=== PATIENT | male | born 1960 | race American Indian/Alaskan Native ===

== ENCOUNTER 2016-09-21 09:01 | Emergency (ER) | payer OTHER ==
[2016-09-21 09:21] VITALS: BP 140/88; PULSE 107; RESP 18; TEMP 99.3; O2SAT 100
[2016-09-21] MEDS ORDERED: Sodium Chloride 0.9% 1,000 ML IV STA (10:42)
--- NOTE | 2016-09-21 11:16 | ED PDOC ---
HPI: Abdomen Time Seen by Provider: 09/21/16 09:41 Chief Complaint (Nursing): Abdominal Pain Chief Complaint (Provider): ABdominal pain History Per: Patient History/Exam Limitations: no limitations Onset/Duration Of Symptoms: Days (x2) Current Symptoms Are (Timing): Still Present Severity: Mild Associated Symptoms: Fever, Chills. denies: Nausea, Vomiting, Diarrhea Additional Complaint(s): Patient is a 56 year old male presenting to the ED complaining of left lower quadrant pain x2 days. Patient reports pain is constant and non-radiating. Pain is associated with constipation, chills and tactile fever. Denies nausea, vomiting, or diarrhea. pMD: none Past Medical History Reviewed: Historical Data, Nursing Documentation, Vital Signs Vital Signs: Last Vital Signs Temp 99.3 F 09/21/16 09:16 Pulse 107 H 09/21/16 09:16 Resp 18 09/21/16 09:16 BP 140/88 09/21/16 09:16 Pulse Ox 100 09/21/16 13:29 - Medical History PMH: HTN, Hyperlipidemia - Surgical History Surgical History: No Surg Hx - Family History Family History: States: No Known Family Hx - Home Medications Home Medications: Ambulatory Orders Medication Instructions Recorded Ciprofloxacin HCl [Cipro] 500 mg PO BID #14 tablet 09/21/16 Metronidazole [Flagyl] 500 mg PO BID #14 tablet 09/21/16 - Allergies Allergies/Adverse Reactions: Allergies Allergy/AdvReac Type Severity Reaction Status Date / Time No Known Allergies Allergy Verified 09/21/16 09:16 Review of Systems ROS Statement: Except As Marked, All Systems Reviewed And Found Negative Constitutional: Positive for: Fever, Chills Gastrointestinal: Positive for: Abdominal Pain, Constipation. Negative for: Nausea, Vomiting, Diarrhea Physical Exam - Reviewed Nursing Documentation Reviewed: Yes Vital Signs Reviewed: Yes - Physical Exam Appears: Positive for: Well, Non-toxic, No Acute Distress Head Exam: Positive for: ATRAUMATIC, NORMAL INSPECTION, NORMOCEPHALIC Skin: Positive for: Normal Color, Warm, DRY Eye Exam: Positive for: Normal appearance, EOMI Neck: Positive for: Normal, Painless ROM Cardiovascular/Chest: Positive for: Regular Rate, Rhythm. Negative for: Gallop , JVD, Murmur Respiratory: Positive for: Normal Breath Sounds. Negative for: Accessory Muscle Use, Rhonchi, Respiratory Distress Gastrointestinal/Abdominal: Positive for: Soft, Tenderness (LLQ). Negative for : Mass, Distended, Guarding, Rebound Extremity: Positive for: Normal ROM Neurologic/Psych: Positive for: Alert, Oriented - Laboratory Results Result Diagrams: 09/21/16 11:30 09/21/16 11:30 - ECG O2 Sat by Pulse Oximetry: 100 (rA) Pulse Ox Interpretation: Normal - Progress Re-evaluation Time: 12:30 Condition: Re-examined, Improved Medical Decision Making Medical Decision Making: Time: 9:45 Impression: Diverticulitis v colitis v other diagnosis considered but not r/o Plan: CT A/P CMP Lipase UDip CBC Morphine 4 mg IV IVF PROCEDURE: CT Abdomen and Pelvis with contrast HISTORY: llq pain COMPARISON: None. TECHNIQUE: Axial and reformatted coronal and sagittal CT images of the abdomen and pelvis were obtained after IV contrast administration. Contrast dose: 95 mL of Omnipaque 3 high Radiation dose: Total exam DLP = 565.4 mGy-cm. This CT exam was performed using one or more of the following dose reduction techniques: Automated exposure control, adjustment of the mA and/or kV according to patient size, and/or use of iterative reconstruction technique. FINDINGS: LOWER THORAX: Small opacities at the lung bases likely atelectasis. LIVER: Mild hepatomegaly is seen without evidence of discrete mass lesion. The portal vein is patent. GALLBLADDER AND BILE DUCTS: Unremarkable. PANCREAS: Unremarkable. No gross lesion or ductal dilatation. SPLEEN: Unremarkable. ADRENALS: Unremarkable. No mass. KIDNEYS AND URETERS: Unremarkable. No hydronephrosis. No solid mass. VASCULATURE: Unremarkable. No aortic aneurysm. BOWEL: There are scattered descending and sigmoid colon diverticulosis. Inflammatory changes and stranding surrounding the proximal sigmoid colon in the left lower abdomen consistent with diverticulitis. No evidence of free air or abscess formation. APPENDIX: No evidence of appendicitis. PERITONEUM: Unremarkable. No free fluid. No free air. LYMPH NODES: Unremarkable. No enlarged lymph nodes. BLADDER: Unremarkable. REPRODUCTIVE: Mildly enlarged prostate demonstrate heterogeneous attenuation and contains foci of calcification. BONES: Moderate degenerative changes at the mid and lower lumbar spine. OTHER FINDINGS: Small fat containing umbilical ventral hernia seen. IMPRESSION: Findings consistent with diverticulitis. No evidence of abscess formation. Otherwise no evidence of acute pathology in the abdomen and pelvis. Mild hepatomegaly. Mildly enlarged heterogeneous prostate. Scribe Attestation: Documented by Tyson Rivera acting as a scribe for Hanny Obrien MD. Scribe Attestation: All medical record entries made by the Scribe were at my direction and personally dictated by me. I have reviewed the chart and agree that the record accurately reflects my personal performance of the history, physical exam, medical decision making, and the department course for this patient. I have also personally directed, reviewed, and agree with the discharge instructions and disposition. Disposition - Clinical Impression Clinical Impression: Acute diverticulitis - Patient ED Disposition Is Patient to be Admitted: No Doctor Will See Patient In The: Office Counseled Patient/Family Regarding: Studies Performed, Diagnosis, Need For Followup - Disposition Referrals: [facility] [Outside] Braxton ALEXANDER,MD Chet [Medical Doctor] - Disposition Time: 13:00 Condition: GOOD Additional Instructions: Return for worsening. Take medications as instructed. Start clear liquid diet. Follow up with your PCP in 2-3 days. Follow up with [facility] in 1 week. Prescriptions: Ciprofloxacin HCl [Cipro] 500 mg PO BID #14 tablet Metronidazole [Flagyl] 500 mg PO BID #14 tablet Instructions: Diverticulitis (DC), Clear Liquid Diet (ED)
[2016-09-21 11:33] LABS: BASO # 0.1 K/uL (0.0-0.2); BASO % 0.5 % (0.0-2.0); EOS # 0.1 K/uL (0.0-0.7); EOS % 0.6 % (0.0-4.0); HEMATOCRIT 45.4 % (35.0-51.0); LYMPH # 1.6 K/uL (1.0-4.3); LYMPH % 14.8 % (20.0-40.0); MEAN CELL VOLUME 91.4 fl (80.0-94.0); MEAN CORPUSCULAR HEMOGLOBIN 30.6 pg (27.0-31.0); MEAN CORPUSCULAR HGB CONC 33.5 g/dL (33.0-37.0); MEAN PLATELET VOLUME 8.6 fl (7.2-11.7); MONO # 0.8 K/uL (0.0-0.8); MONO % 7.2 % (0.0-10.0); NEUT # 8.5 K/uL (1.8-7.0); NEUT % 76.9 % (50.0-75.0); RED CELL DISTRIBUTION WIDTH 14.3 % (11.5-14.5); WHITE BLOOD COUNT 11.1 K/uL (4.8-10.8)
[2016-09-21 11:45] LABS: CHLORIDE 100 mmol/L (98-107); POTASSIUM 4.2 MMOL/L (3.6-5.0); SODIUM 138 mmol/l (132-148)
[2016-09-21 11:47] LABS: ALB/GLOB RATIO 1.2 (1.0-2.1); AST/SGOT 37 U/L (17-59); BILIRUBIN,TOTAL 1.3 mg/dl (0.2-1.3); CARBON DIOXIDE 28 mmol/L (22-30); GFR AFRICAN-AMERICAN > 60; TOTAL PROTEIN 7.4 G/DL (6.3-8.2)
[2016-09-21 11:48] LABS: ALKALINE PHOSPHATASE 72 U/L (38-126); ALT/SGPT 69 U/L (21-72); BLOOD UREA NITROGEN 13 mg/dl (9-20); GLUCOSE,RANDOM 90 mg/dL (75-110); LIPASE 38 U/L (23-300)
[2016-09-21] MEDS ORDERED: Iohexol 300 100 ML IJ ONE (12:05)
[2016-09-21] MEDS ORDERED: Sodium Chloride 0.9% 50 ML IV ONE (12:05)
--- NOTE | 2016-09-21 12:59 | CT ---
PROCEDURE: CT Abdomen and Pelvis with contrast HISTORY: llq pain COMPARISON: None. TECHNIQUE: Axial and reformatted coronal and sagittal CT images of the abdomen and pelvis were obtained after IV contrast administration. Contrast dose: 95 mL of Omnipaque 3 high Radiation dose: Total exam DLP = 565.4 mGy-cm. This CT exam was performed using one or more of the following dose reduction techniques: Automated exposure control, adjustment of the mA and/or kV according to patient size, and/or use of iterative reconstruction technique. FINDINGS: LOWER THORAX: Small opacities at the lung bases likely atelectasis. LIVER: Mild hepatomegaly is seen without evidence of discrete mass lesion. The portal vein is patent. GALLBLADDER AND BILE DUCTS: Unremarkable. PANCREAS: Unremarkable. No gross lesion or ductal dilatation. SPLEEN: Unremarkable. ADRENALS: Unremarkable. No mass. KIDNEYS AND URETERS: Unremarkable. No hydronephrosis. No solid mass. VASCULATURE: Unremarkable. No aortic aneurysm. BOWEL: There are scattered descending and sigmoid colon diverticulosis. Inflammatory changes and stranding surrounding the proximal sigmoid colon in the left lower abdomen consistent with diverticulitis. No evidence of free air or abscess formation. APPENDIX: No evidence of appendicitis. PERITONEUM: Unremarkable. No free fluid. No free air. LYMPH NODES: Unremarkable. No enlarged lymph nodes. BLADDER: Unremarkable. REPRODUCTIVE: Mildly enlarged prostate demonstrate heterogeneous attenuation and contains foci of calcification. BONES: Moderate degenerative changes at the mid and lower lumbar spine. OTHER FINDINGS: Small fat containing umbilical ventral hernia seen. IMPRESSION: Findings consistent with diverticulitis. No evidence of abscess formation. Otherwise no evidence of acute pathology in the abdomen and pelvis. Mild hepatomegaly. Mildly enlarged heterogeneous prostate.
== END 2016-09-21 13:46 | disposition home or self-care (01) ==
LOC: H.ER 09:01
DX: K57.92 Diverticulitis of intestine, part unspecified, without perforation or abscess without bleeding (principal); R10.32 Left lower quadrant pain; E78.5 Hyperlipidemia, unspecified; I10 Essential (primary) hypertension; N40.0 Benign prostatic hyperplasia without lower urinary tract symptoms

== ENCOUNTER 2016-12-07 08:03 | Emergency (ER) | payer OTHER ==
[2016-12-07] MEDS ORDERED: Sodium Chloride 0.9% 1,000 ML IV STA (08:39)
[2016-12-07] MEDS ORDERED: Iohexol 300 100 ML IJ ONE (09:03)
[2016-12-07] MEDS ORDERED: Sodium Chloride 0.9% 50 ML IV ONE (09:03)
[2016-12-07 09:19] LABS: BASO % 0.4 % (0.0-2.0); EOS % 0.2 % (0.0-4.0); LYMPH # 1.3 K/uL (1.0-4.3); MEAN CELL VOLUME 91.6 fl (80.0-94.0); MEAN CORPUSCULAR HEMOGLOBIN 29.8 pg (27.0-31.0); MEAN CORPUSCULAR HGB CONC 32.5 g/dL (33.0-37.0); MEAN PLATELET VOLUME 8.9 fl (7.2-11.7); MONO # 1.2 K/uL (0.0-0.8); MONO % 8.6 % (0.0-10.0); NEUT # 11.4 K/uL (1.8-7.0); NEUT % 81.8 % (50.0-75.0); PLATELET COUNT 222 K/uL (130-400); RBC 5.36 Mil/uL (4.40-5.90); RED CELL DISTRIBUTION WIDTH 15.4 % (11.5-14.5)
--- NOTE | 2016-12-07 09:19 | ED PDOC ---
HPI: Abdomen Time Seen by Provider: 12/07/16 08:27 Chief Complaint (Nursing): Abdominal Pain Chief Complaint (Provider): my diverticulitis is back History Per: Patient History/Exam Limitations: no limitations Onset/Duration Of Symptoms: Days (2), Gradual Current Symptoms Are (Timing): Still Present Location Of Pain/Discomfort: LLQ Quality Of Discomfort: Sharp, Cramping Associated Symptoms: Diarrhea, Loss Of Appetite. denies: Nausea, Vomiting Exacerbating Factors: None Alleviating Factors: None Last Bowel Movement: Today Additional Complaint(s): 56yo male hx diverticulitis several months ago, has been modifying diet, had colonoscopy, now represents c/o lower abdominal pain and loose nonbloody BM for last 2 days. Denies fever, urinary symptoms or vomiting. Past Medical History Reviewed: Historical Data, Nursing Documentation, Vital Signs Vital Signs: Last Vital Signs Temp 99.1 F 12/07/16 08:11 Pulse 96 H 12/07/16 09:22 Resp 18 12/07/16 08:11 BP 138/80 12/07/16 08:11 Pulse Ox 98 12/07/16 11:19 - Medical History PMH: Diverticulitis, HTN, Hyperlipidemia - Surgical History Surgical History: No Surg Hx - Family History Family History: States: Unknown Family Hx - Living Arrangements Living Arrangements: With Family - Social History Current smoker - smoking cessation education provided: No Alcohol: None - Home Medications Home Medications: Ambulatory Orders Medication Instructions Recorded Ciprofloxacin [Cipro] 500 mg PO BID #14 tab 12/07/16 Ezetimibe [Zetia] 1 tab PO DAILY 12/07/16 amLODIPine [Norvasc] 1 tab PO DAILY 12/07/16 metroNIDAZOLE [Flagyl] 500 mg PO TID #21 tab 12/07/16 - Allergies Allergies/Adverse Reactions: Allergies Allergy/AdvReac Type Severity Reaction Status Date / Time No Known Allergies Allergy Verified 12/07/16 09:18 Review of Systems ROS Statement: Except As Marked, All Systems Reviewed And Found Negative Constitutional: Negative for: Fever, Chills Cardiovascular: Negative for: Chest Pain, Palpitations Respiratory: Negative for: Cough, Shortness of Breath Gastrointestinal: Positive for: Abdominal Pain, Diarrhea. Negative for: Nausea , Vomiting, Constipation, Melena, Hematochezia, Hematemesis Genitourinary Male: Negative for: Dysuria Musculoskeletal: Negative for: Neck Pain, Arm Pain, Back Pain, Leg Pain Skin: Negative for: Rash, Lesions, Jaundice Neurological: Negative for: Weakness, Numbness Psych: Negative for: Anxiety Physical Exam - Reviewed Nursing Documentation Reviewed: Yes Vital Signs Reviewed: Yes - Physical Exam Appears: Positive for: Well, Non-toxic, No Acute Distress Head Exam: Positive for: ATRAUMATIC, NORMAL INSPECTION, NORMOCEPHALIC Skin: Positive for: Normal Color, Warm, DRY Eye Exam: Positive for: EOMI, Normal appearance, PERRL ENT: Positive for: Normal ENT Inspection Neck: Positive for: Normal, Painless ROM Cardiovascular/Chest: Positive for: Regular Rate, Rhythm Respiratory: Positive for: CNT, Normal Breath Sounds Gastrointestinal/Abdominal: Positive for: Bowel Sounds, Soft, Tenderness (lower abd b/l). Negative for: Distended, Guarding, Rebound Back: Positive for: Normal Inspection Extremity: Positive for: Normal ROM Neurologic/Psych: Positive for: Alert, Oriented. Negative for: Motor/Sensory Deficits - Laboratory Results Result Diagrams: 12/07/16 09:07 12/07/16 09:34 - ECG O2 Sat by Pulse Oximetry: 98 Medical Decision Making Medical Decision Making: workup initiated for lower abd pain in setting of recent diverticulitis. r/o recurrence/abscess or other acute abdominal pathology. Abd /pelv CT, labwork and pain medicine ordered. labs reviewed, mild elev WBC chem unremarkable CT report: Accession No. : [id number] Patient Name / ID : SKY GRANADO / [id number] Exam Date : 12/07/2016 10:04:38 ( Approved ) Study Comment : Sex / Age : M / 56Y Creator : Dariusz Varela MD Dictator : Dariusz Varela MD Floorperson : Child Custody Evaluator : Dariusz Varela MD Approver2 : Report Date : 12/07/2016 11:08:48 My Comment : PROCEDURE: CT Abdomen and Pelvis with contrast HISTORY: lower abd pain hx diverticulitis COMPARISON: 09/21/2016 TECHNIQUE: Contrast dose: 95 mL Omnipaque 300 Radiation dose: Total exam DLP = 688.86 mGy-cm. This CT exam was performed using one or more of the following dose reduction techniques: Automated exposure control, adjustment of the mA and/or kV according to patient size, and/or use of iterative reconstruction technique. FINDINGS: LOWER THORAX: Unremarkable. LIVER: Normal size and contour. No mass. No biliary dilatation. GALLBLADDER AND BILE DUCTS: Unremarkable. PANCREAS: Unremarkable. No gross lesion or ductal dilatation. SPLEEN: Unremarkable. ADRENALS: Unremarkable. No mass. KIDNEYS AND URETERS: Unremarkable. No hydronephrosis. No solid mass. VASCULATURE: Unremarkable. No aortic aneurysm. BOWEL: Scattered colonic diverticulae. Acute sigmoid diverticulitis with mural thickening and parity sigmoid inflammatory change. No evidence of abscess or free air. Few small reactive perisigmoid lymph nodes identified. The remainder of the bowel is unremarkable. No evidence of bowel obstruction. APPENDIX: Normal appendix. PERITONEUM: Unremarkable. No free fluid. No free air. LYMPH NODES: Unremarkable. No enlarged lymph nodes. BLADDER: Unremarkable. REPRODUCTIVE: Normal prostate BONES: No acute fracture. Extensive multilevel lumbar degenerative disc disease. OTHER FINDINGS: None. IMPRESSION: Acute sigmoid diverticulitis. No evidence of abscess or free air. No other significant abnormality. Will give dose Zosyn in ED and DC with cipro/flagyl for mandatory followup w his GI specialist in [place]. Comfortable, without significant pain, afebrile, stable for outpatient followup and liquid diet x3 days. Disposition - Clinical Impression Clinical Impression: Diverticulitis - Patient ED Disposition Is Patient to be Admitted: No Counseled Patient/Family Regarding: Studies Performed, Diagnosis, Need For Followup - Disposition Referrals: Braxton ALEXANDER,MD Chet [Medical Doctor] - Disposition: Routine/Home Disposition Time: 11:30 Condition: STABLE Additional Instructions: Followup with PMD and GI specialist for further treatment and testing. Return to ER for any worse symptoms, pain, fever, blood in stool or any concern. If symptoms persist or recur, you may need surgery for this condition. Prescriptions: Ciprofloxacin [Cipro] 500 mg PO BID #14 tab metroNIDAZOLE [Flagyl] 500 mg PO TID #21 tab Instructions: Diverticulitis (ED) Forms: [employer] ([place])
[2016-12-07 09:37] LABS: SQUAMOUS EPITHIAL < 1 /hpf (0-5); URINE BILIRUBIN NEGATIVE (NEGATIVE); URINE BLOOD SMALL (NEGATIVE); URINE CLARITY CLEAR (Clear); URINE COLOR YELLOW (YELLOW); URINE GLUCOSE (UA) NEG (Normal); URINE LEUKOCYTE ESTERASE NEG Leu/uL (Negative); URINE NITRATE NEGATIVE (NEGATIVE); URINE PROTEIN 100 mg/dL (NEGATIVE); URINE UROBILINOGEN 0.2-1.0 mg/dL (0.2-1.0)
[2016-12-07 09:53] LABS: ALB/GLOB RATIO 1.3 (1.0-2.1); ALT/SGPT 53 U/L (21-72); AST/SGOT 26 U/L (17-59); BLOOD UREA NITROGEN 12 mg/dl (9-20); CALCIUM 8.8 mg/dL (8.4-10.2); GFR AFRICAN-AMERICAN > 60; GFR NON-AFRICAN AMERICAN > 60; LIPASE 40 U/L (23-300)
[2016-12-07 10:35] LABS: ANISOCYTOSIS SLIGHT; BANDS 1 % (0-2); LYMPHOCYTE 10 % (20-50); MONOCYTE 5 % (0-10); NEUTROPHIL 83 % (42-75); OVALOCYTES SLIGHT; PLATELET ESTIMATE NORMAL (NORMAL); POIKILOCYTOSIS SLIGHT; REACTIVE LYMPHOCYTES 1 % (0-0); SCHISTOCYTES SLIGHT; TEARDROP CELLS SLIGHT; TOTAL CELLS COUNTED 100
--- NOTE | 2016-12-07 11:10 | CT ---
PROCEDURE: CT Abdomen and Pelvis with contrast HISTORY: lower abd pain hx diverticulitis COMPARISON: 09/21/2016 TECHNIQUE: Contrast dose: 95 mL Omnipaque 300 Radiation dose: Total exam DLP = 688.86 mGy-cm. This CT exam was performed using one or more of the following dose reduction techniques: Automated exposure control, adjustment of the mA and/or kV according to patient size, and/or use of iterative reconstruction technique. FINDINGS: LOWER THORAX: Unremarkable. LIVER: Normal size and contour. No mass. No biliary dilatation. GALLBLADDER AND BILE DUCTS: Unremarkable. PANCREAS: Unremarkable. No gross lesion or ductal dilatation. SPLEEN: Unremarkable. ADRENALS: Unremarkable. No mass. KIDNEYS AND URETERS: Unremarkable. No hydronephrosis. No solid mass. VASCULATURE: Unremarkable. No aortic aneurysm. BOWEL: Scattered colonic diverticulae. Acute sigmoid diverticulitis with mural thickening and parity sigmoid inflammatory change. No evidence of abscess or free air. Few small reactive perisigmoid lymph nodes identified. The remainder of the bowel is unremarkable. No evidence of bowel obstruction. APPENDIX: Normal appendix. PERITONEUM: Unremarkable. No free fluid. No free air. LYMPH NODES: Unremarkable. No enlarged lymph nodes. BLADDER: Unremarkable. REPRODUCTIVE: Normal prostate BONES: No acute fracture. Extensive multilevel lumbar degenerative disc disease. OTHER FINDINGS: None. IMPRESSION: Acute sigmoid diverticulitis. No evidence of abscess or free air. No other significant abnormality.
[2016-12-07] MEDS ORDERED: Piperacillin/Tazobact 4.5 GM in Sodium Chloride 0.9% 100 ML IVPB ONE (12:00)
[2016-12-07 14:47] VITALS: BP 117/81; PULSE 89; RESP 17; TEMP 98.6; O2SAT 96
== END 2016-12-07 14:47 | disposition home or self-care (01) ==
LOC: H.ER 08:03
DX: K57.32 Diverticulitis of large intestine without perforation or abscess without bleeding (principal); E78.5 Hyperlipidemia, unspecified; I10 Essential (primary) hypertension